=== PATIENT | male | born 1980 | race Caucasian/White ===

== ENCOUNTER 2017-09-20 00:04 | Emergency (ER) | payer MEDICARE, MEDICAID ==
[~2017-09-20 00:04] MED LIST: ALBU8.5H8 IH; CRUT1EAC36; FLUT16SP26 BOTHNARES; GUAI120015 PO; HYDR-569 PO; IBUP-1986 PO; NAPR-1154 PO; NO HOME MEDS
== END 2017-09-20 01:00 | disposition left against medical advice (07) ==
LOC: ER 00:05
DX: S00.83XA Contusion of other part of head, initial encounter (principal); G89.29 Other chronic pain; F12.10 Cannabis abuse, uncomplicated; F15.10 Other stimulant abuse, uncomplicated; Z79.899 Other long term (current) drug therapy; Z56.0 Unemployment, unspecified; Z59.0 Homelessness; Y09 Assault by unspecified means; Y93.89 Activity, other specified; Y92.89 Other specified places as the place of occurrence of the external cause; Y99.8 Other external cause status
CPT/HCPCS: 99281

== ENCOUNTER 2017-12-29 14:29 | Outpatient (CLI) | payer MEDICARE, MEDICAID ==
[2017-12-29 14:28] VITALS: BP 104/64
[~2017-12-29 14:29] MED LIST changes: +CEPH-571 PO; +HYDR-3965 PO
== END 2017-12-29 15:07 | disposition home or self-care (01) ==
LOC: ORTHO 14:29
PROVIDERS: ATTEND Nurse Practitioner Family
DX: S52.501A Unspecified fracture of the lower end of right radius, initial encounter for closed fracture (principal); F17.210 Nicotine dependence, cigarettes, uncomplicated; F12.90 Cannabis use, unspecified, uncomplicated; F15.90 Other stimulant use, unspecified, uncomplicated; Z56.0 Unemployment, unspecified; Z59.0 Homelessness; Z72.89 Other problems related to lifestyle; Z85.47 Personal history of malignant neoplasm of testis; Z90.79 Acquired absence of other genital organ(s); W01.0XXA Fall on same level from slipping, tripping and stumbling without subsequent striking against object, initial encounter; Y93.89 Activity, other specified; Y92.89 Other specified places as the place of occurrence of the external cause; Y99.8 Other external cause status
CPT/HCPCS: 73110; 99213

== ENCOUNTER 2018-01-11 09:58 | Outpatient (CLI) | payer MEDICARE, MEDICAID ==
[2018-01-11 09:57] VITALS: BP 119/74
== END 2018-01-11 10:14 | disposition home or self-care (01) ==
LOC: ORTHO 09:58
PROVIDERS: ATTEND Nurse Practitioner Family
DX: S52.591G Other fractures of lower end of right radius, subsequent encounter for closed fracture with delayed healing (principal); F17.210 Nicotine dependence, cigarettes, uncomplicated; F12.90 Cannabis use, unspecified, uncomplicated; F15.90 Other stimulant use, unspecified, uncomplicated; Z59.0 Homelessness; Z56.0 Unemployment, unspecified; Z72.89 Other problems related to lifestyle; W01.0XXD Fall on same level from slipping, tripping and stumbling without subsequent striking against object, subsequent encounter
CPT/HCPCS: 73110; 99213; A6449

== ENCOUNTER 2018-01-18 11:08 | Outpatient (CLI) | payer MEDICARE, MEDICAID ==
[2018-01-18 11:06] VITALS: BP 104/69
== END 2018-01-18 12:16 | disposition home or self-care (01) ==
LOC: ORTHO 11:08
PROVIDERS: ATTEND Nurse Practitioner Family
DX: S52.591G Other fractures of lower end of right radius, subsequent encounter for closed fracture with delayed healing (principal); F17.210 Nicotine dependence, cigarettes, uncomplicated; F12.90 Cannabis use, unspecified, uncomplicated; Z72.89 Other problems related to lifestyle; Z56.0 Unemployment, unspecified; Z59.0 Homelessness; Z85.47 Personal history of malignant neoplasm of testis; W01.0XXD Fall on same level from slipping, tripping and stumbling without subsequent striking against object, subsequent encounter
CPT/HCPCS: 73110; 99213; A4590

== ENCOUNTER 2018-02-01 12:59 | Outpatient (CLI) | payer MEDICARE, MEDICAID ==
[2018-02-01 12:46] VITALS: BP 112/71
[~2018-02-01 12:59] MED LIST changes: -HYDR-3965 PO
== END 2018-02-01 13:46 | disposition home or self-care (01) ==
LOC: ORTHO 12:59
PROVIDERS: ATTEND Nurse Practitioner Family
DX: S52.501G Unspecified fracture of the lower end of right radius, subsequent encounter for closed fracture with delayed healing (principal); F12.90 Cannabis use, unspecified, uncomplicated; F17.210 Nicotine dependence, cigarettes, uncomplicated; Z56.0 Unemployment, unspecified; Z59.0 Homelessness; Z72.89 Other problems related to lifestyle; Z85.47 Personal history of malignant neoplasm of testis; X58.XXXD Exposure to other specified factors, subsequent encounter
CPT/HCPCS: 73110; 99213; A4590

== ENCOUNTER 2018-03-01 09:37 | Outpatient (CLI) | payer OTHER, MEDICARE, MEDICAID ==
[2018-03-01 09:10] VITALS: BP 153/84
[~2018-03-01 09:37] MED LIST changes: +HYDR-4383 PO; -HYDR-569 PO
== END 2018-03-01 09:55 | disposition home or self-care (01) ==
LOC: ORTHO 09:37
PROVIDERS: ATTEND Nurse Practitioner Family
DX: S62.024G Nondisplaced fracture of middle third of navicular [scaphoid] bone of right wrist, subsequent encounter for fracture with delayed healing (principal); S52.591G Other fractures of lower end of right radius, subsequent encounter for closed fracture with delayed healing; F12.90 Cannabis use, unspecified, uncomplicated; F17.210 Nicotine dependence, cigarettes, uncomplicated; Z72.89 Other problems related to lifestyle; Z59.0 Homelessness; Z56.0 Unemployment, unspecified; W01.0XXD Fall on same level from slipping, tripping and stumbling without subsequent striking against object, subsequent encounter
CPT/HCPCS: 73110; 99213

== ENCOUNTER 2018-03-21 09:17 | Outpatient (CLI) | payer OTHER, MEDICARE, MEDICAID ==
[2018-03-21 09:08] VITALS: BP 122/78
== END 2018-03-21 09:45 | disposition home or self-care (01) ==
LOC: ORTHO 09:17
PROVIDERS: ATTEND Nurse Practitioner Family
DX: S52.591D Other fractures of lower end of right radius, subsequent encounter for closed fracture with routine healing (principal); S62.024D Nondisplaced fracture of middle third of navicular [scaphoid] bone of right wrist, subsequent encounter for fracture with routine healing; Z87.891 Personal history of nicotine dependence; Z59.0 Homelessness; Z56.0 Unemployment, unspecified; X58.XXXD Exposure to other specified factors, subsequent encounter
CPT/HCPCS: 73110; 99213

== ENCOUNTER 2018-04-12 11:12 | Outpatient (CLI) | payer MEDICARE, MEDICAID ==
[2018-04-12 11:33] VITALS: BP 102/69
== END 2018-04-12 11:59 | disposition home or self-care (01) ==
LOC: ORTHO 11:12
PROVIDERS: ATTEND Nurse Practitioner Family
DX: S52.591D Other fractures of lower end of right radius, subsequent encounter for closed fracture with routine healing (principal); S62.024G Nondisplaced fracture of middle third of navicular [scaphoid] bone of right wrist, subsequent encounter for fracture with delayed healing; F17.210 Nicotine dependence, cigarettes, uncomplicated; Z56.0 Unemployment, unspecified; Z59.0 Homelessness; Z72.89 Other problems related to lifestyle; W01.0XXD Fall on same level from slipping, tripping and stumbling without subsequent striking against object, subsequent encounter
CPT/HCPCS: 73110; 99213

== ENCOUNTER 2018-08-03 06:25 | Emergency (ER) | payer MEDICARE, MEDICAID ==
[~2018-08-03] VITALS: Ht 165.1 cm; Wt 68.7 kg
[2018-08-03 06:27] VITALS: BP 121/79
[2018-08-03] MEDS ORDERED: PRED20TA PO (07:07)
[2018-08-03] MEDS ORDERED: dexamethasone 4mg tablet PO ONE (07:10)
== END 2018-08-03 07:21 | disposition home or self-care (01) ==
LOC: ER 06:26
DX: L23.7 Allergic contact dermatitis due to plants, except food (principal); G89.29 Other chronic pain; F12.90 Cannabis use, unspecified, uncomplicated; Z59.0 Homelessness; Z56.0 Unemployment, unspecified; Z98.890 Other specified postprocedural states; Z86.14 Personal history of Methicillin resistant Staphylococcus aureus infection; Z79.899 Other long term (current) drug therapy
CPT/HCPCS: 99283; J8540

== ENCOUNTER 2018-08-31 14:39 | Outpatient (CLI) | payer MEDICARE, MEDICAID ==
[~2018-08-31 14:39] MED LIST changes: +PRED20TA PO
== END 2018-08-31 15:15 | disposition home or self-care (01) ==
LOC: ORTHO 14:39
PROVIDERS: ATTEND Orthopaedic Surgery
DX: S52.591D Other fractures of lower end of right radius, subsequent encounter for closed fracture with routine healing (principal); X58.XXXD Exposure to other specified factors, subsequent encounter
CPT/HCPCS: 73110; 99213

== ENCOUNTER 2018-10-27 06:11 | Emergency (ER) | payer MEDICARE, MEDICAID ==
[~2018-10-27] VITALS: Ht 165.1 cm; Wt 75.0 kg
[~2018-10-27 06:11] MED LIST changes: -PRED20TA PO
[2018-10-27] MEDS ORDERED: HYDROcodone/acetaminophen 5mg/325mg tablet PO ONE ×2 (06:45→07:20)
[2018-10-27] MEDS ORDERED: ondansetron 4mg rapidly disintigrating tab PO ONE ×2 (06:45→07:20)
[2018-10-27 06:57] LABS: CLARITY,URINE SLIGHTLY CLOUDY (Clear); GLUCOSE, URINE NEGATIVE (Neg); KETONES,URINE NEGATIVE (Neg); LEUKOCYTE ESTERASE ,URINE NEGATIVE (Neg); NITRITES, URINE NEGATIVE (Neg); OCCULT BLOOD,URINE NEGATIVE (Neg); PROTEIN,URINE 30 mg/dl (Neg); UROBILINOGEN,URINE 0.2 E.U/dL (0.2-1.0)
[2018-10-27 07:05] LABS: BASOPHILS % (AUTO) 0.3 % (0-1); EOSINOPHILS % (AUTO) 0.3 % (0-6); HEMATOCRIT 50.7 % (42.0-52.0); HEMOGLOBIN 17.8 g/dl (14.0-17.9); LYMPHOCYTES # (AUTO) 1.3 X10'3 (1.1-4.8); LYMPHOCYTES % (AUTO) 8.6 % (21-51); MEAN CORPUSCULAR HEMOGLOBIN 32.9 PG (27.0-31.0); MEAN CORPUSCULAR VOLUME 93.8 FL (78-98); MEAN PLATELET VOLUME 8.3 FL (7.4-10.4); MONOCYTES # (AUTO) 0.9 X10'3 (0-0.9); MONOCYTES % (AUTO) 6.1 % (2-12); NEUTROPHILS # (AUTO) 12.6 X10'3 (1.8-7.7); NEUTROPHILS % (AUTO) 84.7 % (42-75); PLATELET COUNT 280 X10'3 (140-440); RED BLOOD COUNT 5.41 X10'6 (4.70-6.10); RED CELL DISTRIBUTION WIDTH 12.7 % (11.5-14.5); WHITE BLOOD COUNT 14.9 X10'3 (4.5-11.0)
[2018-10-27] MEDS ORDERED: diphenhydrAMINE 25mg capsule PO ONE (07:05)
[2018-10-27] MEDS ORDERED: acetaminophen 325mg tablet PO ONE (07:05)
[2018-10-27] MEDS ORDERED: clindamycin 150mg capsule PO ONE (07:05)
[2018-10-27] MEDS ORDERED: TETanus/Pertussis (Acell)/Diphther VAC/PF (Tdap-Adult) 0.5ml syringe IM ONE (07:05)
[2018-10-27 07:07] LABS: UA COLLECTION TYPE NON-SPECIFIED
[2018-10-27 07:08] LABS: COLOR,URINE DARK YELLOW (Yellow)
[2018-10-27 07:11] LABS: WBC,URINE 0-4 /HPF (0-4)
[2018-10-27 07:12] LABS: RBC,URINE 0-2 /HPF (0-2)
[2018-10-27 07:13] LABS: AMORPHOUS URATES 1+; BACTERIA,URINE FEW /HPF (Neg); HYALINE CASTS 0-3 /LPF (NEGATIVE); MUCUS STRANDS MANY /LPF (Neg); SQUAMOUS EPITHELIAL CELL,UR FEW /LPF (FEW)
[2018-10-27 07:27] VITALS: BP 164/104
[2018-10-27 07:41] LABS: ALANINE AMINOTRANSFERASE 25 U/L (12-78); ALBUMIN 4.3 G/DL (3.4-5.0); ALBUMIN/GLOBULIN RATIO 1.3 (1.1-1.5); ALKALINE PHOSPHATASE 65 IU/L (46-116); ANION GAP 6 (8-16); ASPARTATE AMINO TRANSFERASE 20 U/L (10-37); BILIRUBIN,TOTAL 0.3 MG/DL (0.1-1.0); BLOOD UREA NITROGEN 21 MG/DL (7-18); BUN/CREATININE RATIO 19.4 (5.4-32.0); CALCIUM 8.7 MG/DL (8.5-10.1); CHLORIDE 107 MMOL/L (99-107); CREATININE 1.08 MG/DL (0.60-1.10); GLUCOSE 133 MG/DL (70-104); LIPASE 89 U/L (73-393); POTASSIUM 4.1 MMOL/L (3.5-5.1); SODIUM 139 MMOL/L (135-145); TOTAL CARBON DIOXIDE 26.2 MMOL/L (24-32); TOTAL PROTEIN 7.7 G/DL (6.4-8.2); eGFR 77 ML/MIN
[2018-10-27] MEDS ORDERED: ketorolac trometh. 30mg/ml inj. IV SCH (08:00)
[2018-10-27 08:27] LABS: URINE AMPHETAMINE SCREEN NEGATIVE (Neg); URINE BARBITUATE SCREEN NEGATIVE (Neg); URINE BENZODIAZEPINES SCREEN NEGATIVE (Neg); URINE CANNABINOID SCREEN POSITIVE (Neg); URINE COCAINE SCREEN NEGATIVE (Neg); URINE METHADONE SCREEN NEGATIVE (Neg); URINE OPIATE SCREEN NEGATIVE (Neg); URINE PHENCYCLIDINE SCREEN NEGATIVE (Neg)
[2018-10-27] MEDS ORDERED: HYDR-3965 PO (08:56)
[2018-10-27] MEDS ORDERED: BISA-155 PO (08:56)
[2018-10-27] MEDS ORDERED: ONDA8TAB6 PO (08:56)
== END 2018-10-27 09:00 | disposition home or self-care (01) ==
LOC: ER 06:12
DX: R10.30 Lower abdominal pain, unspecified (principal); R10.84 Generalized abdominal pain; G89.29 Other chronic pain; F17.200 Nicotine dependence, unspecified, uncomplicated; F12.90 Cannabis use, unspecified, uncomplicated; Z59.0 Homelessness; Z56.0 Unemployment, unspecified; Z98.890 Other specified postprocedural states; Z86.14 Personal history of Methicillin resistant Staphylococcus aureus infection; Z79.899 Other long term (current) drug therapy
CPT/HCPCS: 36415; 80053; 80305; 81001; 83690; 85025; 85610; 99283; Q0163

== ENCOUNTER 2020-04-06 09:24 | Emergency (ER) | payer MEDICARE, MEDICAID ==
[~2020-04-06] VITALS: Ht 167.6 cm; Wt 63.6 kg
[~2020-04-06 09:24] MED LIST changes: +BISA-155 PO; +ONDA8TAB6 PO
[2020-04-06 09:29] VITALS: BP 115/90
[2020-04-06] MEDS ORDERED: ketorolac tromethamine 15mg/ml inj. IM ONE (10:15)
[2020-04-06] MEDS ORDERED: IBUP-1985 PO (10:29)
== END 2020-04-06 10:54 | disposition home or self-care (01) ==
LOC: ER 09:24
DX: G89.29 Other chronic pain (principal); M25.551 Pain in right hip; Z98.890 Other specified postprocedural states; F10.99 Alcohol use, unspecified with unspecified alcohol-induced disorder; F12.90 Cannabis use, unspecified, uncomplicated; Z86.14 Personal history of Methicillin resistant Staphylococcus aureus infection; Z56.0 Unemployment, unspecified; Z59.0 Homelessness; Z79.899 Other long term (current) drug therapy; Z87.828 Personal history of other (healed) physical injury and trauma
CPT/HCPCS: 96372; 99283; J1885

== ENCOUNTER 2020-08-19 19:26 | Emergency (ER) | payer MEDICAID, MEDICARE ==
[~2020-08-19] VITALS: Ht 167.6 cm; Wt 63.6 kg
[~2020-08-19 19:26] MED LIST changes: +IBUP-1985 PO; +LIDOcaine 1% 30ml preserv. free vial ONE; +LIDOcaine 1% W/epiNEPHrine 1:100,000 20ml vial ONE
[2020-08-19 19:43] VITALS: BP 139/88
[2020-08-19] MEDS ORDERED: TETanus/Pertussis (Acell)/Diphther VAC/PF (Tdap-Adult) 0.5ml syringe IMVAC ONE (19:50)
[2020-08-19] MEDS ORDERED: bacitracin 15gm ointment TP ONE (19:50)
[2020-08-19] MEDS ORDERED: LIDOcaine 1% W/epiNEPHrine 1:200,000 10ml vial IJ ONE (19:50)
[2020-08-19] MEDS ORDERED: ceFAZolin 1000mg inj IV ONE (19:50)
[2020-08-19] MEDS ORDERED: fentaNYL/PF 50MCG/1 ML 2ML syringe IV ONE (19:50)
[2020-08-19] MEDS ORDERED: ondansetron/PF 4mg/2ml inj IV ONE (19:50)
[2020-08-19] MEDS ORDERED: cefazolin/dext.iso 2gm/100ml 100 ML IV ONE (19:55)
[2020-08-19] MEDS ORDERED: rabies immune globulin/PF 150 unit/ml inj IMVAC STA (20:48)
[2020-08-19] MEDS ORDERED: rabies vaccine (PCEC)/PF 2.5 unit kit IMVAC ONE (20:50)
[2020-08-19] MEDS ORDERED: LIDOcaine 1% w/epiNEPHrine 1:200,000 30ml vial SQ ONE (21:20)
[2020-08-19] MEDS ORDERED: LIDOcaine 1% W/epiNEPHrine 1:100,000 20ml vial IJ ONE (21:30)
--- NOTE | 2020-08-19 22:00 | NUR ---
Confirmed with Dr. Blanco that administered all of Rabies Immunoglobin.
[2020-08-19] MEDS ORDERED: ONDA4TAB6 PO (22:31)
[2020-08-19] MEDS ORDERED: HYDR-3964 PO (22:31)
[2020-08-19] MEDS ORDERED: AMOX-117 PO (22:31)
[2020-08-19] MEDS ORDERED: ondansetron 4mg rapidly disintigrating tab PO ONE (22:40)
[2020-08-19] MEDS ORDERED: HYDROcodone/acetaminophen 10/325mg tab PO ONE (22:40)
== END 2020-08-19 23:02 | disposition home or self-care (01) ==
LOC: ER 19:26
DX: S61.212A Laceration without foreign body of right middle finger without damage to nail, initial encounter (principal); G89.29 Other chronic pain; F12.90 Cannabis use, unspecified, uncomplicated; Z20.3 Contact with and (suspected) exposure to rabies; Z86.14 Personal history of Methicillin resistant Staphylococcus aureus infection; Z85.9 Personal history of malignant neoplasm, unspecified; Z98.890 Other specified postprocedural states; Z72.89 Other problems related to lifestyle; Z56.0 Unemployment, unspecified; Z59.0 Homelessness; Z79.2 Long term (current) use of antibiotics; Z79.899 Other long term (current) drug therapy; W54.0XXA Bitten by dog, initial encounter; Y93.89 Activity, other specified; Y92.89 Other specified places as the place of occurrence of the external cause; Y99.8 Other external cause status
CPT/HCPCS: 12004; 73130; 90375; 90471; 90472; 90675; 90715; 96365; 96372; 96375; 99284; J2001; J2405; J3010

== ENCOUNTER 2020-08-21 09:16 | Emergency (ER) | payer MEDICARE ==
[~2020-08-21] VITALS: Ht 167.6 cm; Wt 63.6 kg
[~2020-08-21 09:16] MED LIST changes: +AMOX-117 PO; +HYDR-3964 PO; -LIDOcaine 1% 30ml preserv. free vial ONE; -LIDOcaine 1% W/epiNEPHrine 1:100,000 20ml vial ONE; +ONDA4TAB6 PO
--- NOTE | 2020-08-21 11:07 | NUR ---
maxwell españa asked to document dressing application non adherent, gauze wrap and elizabeth wrap to right hand, sutures well approximated
[2020-08-21 11:09] VITALS: BP 111/71
== END 2020-08-21 11:10 | disposition home or self-care (01) ==
LOC: ER 09:16
DX: S61.411D Laceration without foreign body of right hand, subsequent encounter (principal); G89.29 Other chronic pain; F12.90 Cannabis use, unspecified, uncomplicated; Z86.14 Personal history of Methicillin resistant Staphylococcus aureus infection; Z85.9 Personal history of malignant neoplasm, unspecified; Z98.890 Other specified postprocedural states; Z72.89 Other problems related to lifestyle; Z59.0 Homelessness; Z56.0 Unemployment, unspecified; Z79.2 Long term (current) use of antibiotics; Z79.899 Other long term (current) drug therapy; W54.0XXD Bitten by dog, subsequent encounter
CPT/HCPCS: 99281

== ENCOUNTER 2020-08-22 08:12 | Emergency (ER) | payer MEDICARE ==
[~2020-08-22] VITALS: Ht 167.6 cm; Wt 63.6 kg
[2020-08-22 08:18] VITALS: BP 117/82
[2020-08-22] MEDS ORDERED: rabies vaccine (PCEC)/PF 2.5 unit kit IMVAC ONE (08:25)
[2020-08-22] MEDS ORDERED: probenecid 500mg tablet PO ONE (08:35)
[2020-08-22] MEDS ORDERED: ampicillin/sulbac 3gm/NS 100ml 100 ML IV SCH (08:49)
== END 2020-08-22 10:51 | disposition home or self-care (01) ==
LOC: ER 08:13
DX: S61.411D Laceration without foreign body of right hand, subsequent encounter (principal); G89.29 Other chronic pain; F12.90 Cannabis use, unspecified, uncomplicated; F17.210 Nicotine dependence, cigarettes, uncomplicated; Z23 Encounter for immunization; Z20.3 Contact with and (suspected) exposure to rabies; Z86.14 Personal history of Methicillin resistant Staphylococcus aureus infection; Z85.9 Personal history of malignant neoplasm, unspecified; Z98.890 Other specified postprocedural states; Z72.89 Other problems related to lifestyle; Z59.0 Homelessness; Z56.0 Unemployment, unspecified; Z79.2 Long term (current) use of antibiotics; Z79.899 Other long term (current) drug therapy; X58.XXXD Exposure to other specified factors, subsequent encounter
CPT/HCPCS: 90471; 90675; 96365; 99284; J0295

== ENCOUNTER 2020-08-26 07:09 | Emergency (ER) | payer MEDICARE ==
[~2020-08-26] VITALS: Ht 167.6 cm; Wt 70.0 kg
[2020-08-26 07:11] VITALS: BP 124/89
[2020-08-26] MEDS ORDERED: rabies vaccine (PCEC)/PF 2.5 unit kit IMVAC ONE (08:15)
== END 2020-08-26 08:37 | disposition home or self-care (01) ==
LOC: ER 07:10
DX: Z23 Encounter for immunization (principal); Z48.01 Encounter for change or removal of surgical wound dressing; G89.29 Other chronic pain; Z86.14 Personal history of Methicillin resistant Staphylococcus aureus infection; F12.90 Cannabis use, unspecified, uncomplicated; Z72.89 Other problems related to lifestyle; Z59.0 Homelessness; Z56.0 Unemployment, unspecified; Z79.899 Other long term (current) drug therapy
CPT/HCPCS: 90471; 90675; 99282

== ENCOUNTER 2020-09-02 07:11 | Emergency (ER) | payer MEDICARE ==
[~2020-09-02] VITALS: Ht 167.6 cm; Wt 67.2 kg
[~2020-09-02 07:11] MED LIST changes: -AMOX-117 PO
[2020-09-02 07:15] VITALS: BP 129/88
--- NOTE | 2020-09-02 07:31 | NUR ---
PATIENT IS HERE TO HAVE SUTURES REMOVED FROM HAND THAT WERE PLACED ON 08/20/2020. WOUNDS APPEAR TO BE HEALING WELL AT THIS TIME.
[2020-09-02] MEDS ORDERED: rabies vaccine (PCEC)/PF 2.5 unit kit IMVAC ONE (08:15)
--- NOTE | 2020-09-02 11:21 | NUR ---
pt. received his 4th vaccine for rabies. pt. was told to come back for his 5th vaccine. after looking at this particular medication he only needed 4 doses. i called pt. and left a message for him not to return that his vaccine was completed and he could call me in the ER IF HE HAD ANY QUESTIONS
== END 2020-09-02 08:39 | disposition home or self-care (01) ==
LOC: ER 07:12
DX: S61.411D Laceration without foreign body of right hand, subsequent encounter (principal); F12.90 Cannabis use, unspecified, uncomplicated; G89.29 Other chronic pain; Z23 Encounter for immunization; Z20.3 Contact with and (suspected) exposure to rabies; Z48.02 Encounter for removal of sutures; Z86.14 Personal history of Methicillin resistant Staphylococcus aureus infection; Z85.9 Personal history of malignant neoplasm, unspecified; Z98.890 Other specified postprocedural states; Z72.89 Other problems related to lifestyle; Z59.0 Homelessness; Z56.0 Unemployment, unspecified; Z79.2 Long term (current) use of antibiotics; Z79.899 Other long term (current) drug therapy; X58.XXXD Exposure to other specified factors, subsequent encounter
CPT/HCPCS: 90471; 90675; 99281; 99283

== ENCOUNTER 2020-09-06 12:22 | Emergency (ER) | payer MEDICARE ==
[~2020-09-06] VITALS: Ht 165.1 cm; Wt 65.9 kg
[2020-09-06 12:44] VITALS: BP 120/79
[2020-09-06] MEDS ORDERED: HYDR-3965 PO (15:04)
== END 2020-09-06 15:12 | disposition home or self-care (01) ==
LOC: ER 12:23
DX: S62.511A Displaced fracture of proximal phalanx of right thumb, initial encounter for closed fracture (principal); G89.29 Other chronic pain; F12.90 Cannabis use, unspecified, uncomplicated; Z86.14 Personal history of Methicillin resistant Staphylococcus aureus infection; Z59.0 Homelessness; Z56.0 Unemployment, unspecified; Z72.89 Other problems related to lifestyle; Z79.899 Other long term (current) drug therapy; X50.1XXA Overexertion from prolonged static or awkward postures, initial encounter; Y93.89 Activity, other specified; Y92.89 Other specified places as the place of occurrence of the external cause; Y99.8 Other external cause status
CPT/HCPCS: 29125; 73130; 99283

== ENCOUNTER 2020-10-20 19:31 | Emergency (ER) | payer SELFPAY ==
[~2020-10-20] VITALS: Ht 165.1 cm; Wt 65.9 kg
[~2020-10-20 19:31] MED LIST changes: -HYDR-3964 PO
--- NOTE | 2020-10-20 19:33 | NUR ---
CN:[id number]
[2020-10-20] MEDS ORDERED: LIDOcaine 1% W/epiNEPHrine 1:200,000 10ml vial IJ ONE (20:30)
[2020-10-20 21:21] VITALS: BP 118/84
== END 2020-10-20 21:22 | disposition home or self-care (01) ==
LOC: ER 19:31 → EEVIPCON 19:31 → ER 21:22
DX: S01.81XA Laceration without foreign body of other part of head, initial encounter (principal); S01.01XA Laceration without foreign body of scalp, initial encounter; G89.29 Other chronic pain; F12.90 Cannabis use, unspecified, uncomplicated; Z86.14 Personal history of Methicillin resistant Staphylococcus aureus infection; Z85.9 Personal history of malignant neoplasm, unspecified; Z72.89 Other problems related to lifestyle; Z98.890 Other specified postprocedural states; Z56.0 Unemployment, unspecified; Z59.0 Homelessness; X58.XXXA Exposure to other specified factors, initial encounter; Y93.89 Activity, other specified; Y92.89 Other specified places as the place of occurrence of the external cause; Y99.8 Other external cause status
CPT/HCPCS: 12002; 70450; 72125; 99285

== ENCOUNTER 2020-11-06 22:22 | Emergency (ER) | payer MEDICARE, MEDICAID ==
[~2020-11-06] VITALS: Ht 162.6 cm; Wt 62.8 kg
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
[2020-11-07] MEDS ORDERED: CEPH250T PO (00:17)
[2020-11-07] MEDS ORDERED: HYDROcodone/acetaminophen 5mg/325mg tablet PO ONE (00:20)
[2020-11-07] MEDS ORDERED: TETanus/Pertussis (Acell)/Diphther VAC/PF (Tdap-Adult) 0.5ml syringe IMVAC ONE (00:20)
[2020-11-07 00:28] VITALS: BP 122/70
== END 2020-11-07 00:30 | disposition home or self-care (01) ==
LOC: ER 22:23
DX: S01.511A Laceration without foreign body of lip, initial encounter (principal); S01.112A Laceration without foreign body of left eyelid and periocular area, initial encounter; G89.29 Other chronic pain; F17.200 Nicotine dependence, unspecified, uncomplicated; F12.90 Cannabis use, unspecified, uncomplicated; Z86.14 Personal history of Methicillin resistant Staphylococcus aureus infection; Z85.9 Personal history of malignant neoplasm, unspecified; Z98.890 Other specified postprocedural states; Z72.89 Other problems related to lifestyle; Z56.0 Unemployment, unspecified; Z59.0 Homelessness; Z79.2 Long term (current) use of antibiotics; Y08.89XA Assault by other specified means, initial encounter; Y93.89 Activity, other specified; Y92.89 Other specified places as the place of occurrence of the external cause; Y99.8 Other external cause status
CPT/HCPCS: 12053; 99283; 99285

== ENCOUNTER 2020-11-16 09:10 | Emergency (ER) | payer MEDICAID, MEDICARE ==
[~2020-11-16] VITALS: Ht 162.6 cm; Wt 60.3 kg
[2020-11-16 09:31] VITALS: BP 114/77
== END 2020-11-16 10:12 | disposition home or self-care (01) ==
LOC: ER 09:11
DX: S01.511D Laceration without foreign body of lip, subsequent encounter (principal); Z48.02 Encounter for removal of sutures; Z79.2 Long term (current) use of antibiotics; G89.29 Other chronic pain; Z56.0 Unemployment, unspecified; Z59.0 Homelessness; Z85.9 Personal history of malignant neoplasm, unspecified; Z86.14 Personal history of Methicillin resistant Staphylococcus aureus infection; X58.XXXD Exposure to other specified factors, subsequent encounter
CPT/HCPCS: 99281

== ENCOUNTER 2021-01-31 21:57 | Emergency (ER) | payer MEDICARE, MEDICAID ==
[~2021-01-31] VITALS: Ht 162.6 cm; Wt 63.6 kg
[2021-01-31] MEDS ORDERED: LIDOcaine 1% W/epiNEPHrine 1:200,000 10ml vial IJ ONE (22:40)
[2021-01-31] MEDS ORDERED: LIDOcaine 1% W/epiNEPHrine 1:100,000 20ml vial IJ ONE (22:45)
--- NOTE | 2021-02-01 06:02 | NUR ---
KHADAR CASE # [id number]. DISPATCH AWARE THAT PT IS DISCHARGED TO LOBBY AND WILL WAIT THERE UNTIL OFFICER ARRIVES
[2021-02-01 06:03] VITALS: BP 126/81
== END 2021-02-01 06:04 | disposition home or self-care (01) ==
LOC: ER 21:58
DX: S06.0X0A Concussion without loss of consciousness, initial encounter (principal); S01.01XA Laceration without foreign body of scalp, initial encounter; G89.29 Other chronic pain; F12.90 Cannabis use, unspecified, uncomplicated; Z72.89 Other problems related to lifestyle; Z86.14 Personal history of Methicillin resistant Staphylococcus aureus infection; Z85.9 Personal history of malignant neoplasm, unspecified; Z56.0 Unemployment, unspecified; Z59.0 Homelessness; W26.8XXA Contact with other sharp object(s), not elsewhere classified, initial encounter; Y93.89 Activity, other specified; Y92.89 Other specified places as the place of occurrence of the external cause; Y99.8 Other external cause status
CPT/HCPCS: 12001; 99283

== ENCOUNTER 2021-02-13 17:48 | Emergency (ER) | payer MEDICARE, MEDICAID ==
[~2021-02-13] VITALS: Ht 162.6 cm; Wt 59.5 kg
[2021-02-13 21:42] LABS: BASOPHILS % (AUTO) 0.3 % (0-1); EOSINOPHILS # (AUTO) 0.1 X10'3 (0-0.9); EOSINOPHILS % (AUTO) 1.3 % (0-6); HEMATOCRIT 41.1 % (42.0-52.0); HEMOGLOBIN 14.5 g/dl (14.0-17.9); LYMPHOCYTES # (AUTO) 2.2 X10'3 (1.1-4.8); LYMPHOCYTES % (AUTO) 23.9 % (21-51); MEAN CORPUSCULAR HEMOGLOBIN 32.7 PG (27.0-31.0); MEAN CORPUSCULAR HGB CONC 35.3 g/dL (33.0-36.5); MEAN CORPUSCULAR VOLUME 92.7 FL (78-98); MEAN PLATELET VOLUME 7.7 FL (7.4-10.4); MONOCYTES % (AUTO) 10.4 % (2-12); NEUTROPHILS # (AUTO) 5.9 X10'3 (1.8-7.7); NEUTROPHILS % (AUTO) 64.1 % (42-75); PLATELET COUNT 299 X10'3 (140-440); RED BLOOD COUNT 4.44 X10'6 (4.70-6.10); RED CELL DISTRIBUTION WIDTH 12.4 % (11.5-14.5); WHITE BLOOD COUNT 9.2 X10'3 (4.5-11.0)
[2021-02-13 21:51] LABS: ALANINE AMINOTRANSFERASE 26 U/L (12-78); ALBUMIN 3.4 G/DL (3.4-5.0); ALBUMIN/GLOBULIN RATIO 1.1 (1.1-1.5); ALKALINE PHOSPHATASE 101 IU/L (46-116); ANION GAP 7 (8-16); ASPARTATE AMINO TRANSFERASE 15 U/L (10-37); BILIRUBIN,TOTAL 0.5 MG/DL (0.1-1.0); BLOOD UREA NITROGEN 10 MG/DL (7-18); BUN/CREATININE RATIO 12.5 (5.4-32.0); CALCIUM 8.2 MG/DL (8.5-10.1); CHLORIDE 105 MMOL/L (99-107); GLUCOSE 117 MG/DL (70-104); POTASSIUM 3.2 MMOL/L (3.5-5.1); SODIUM 144 MMOL/L (135-145); TOTAL CARBON DIOXIDE 31.8 MMOL/L (24-32); TOTAL PROTEIN 6.4 G/DL (6.4-8.2); eGFR > 90 ML/MIN
[2021-02-13 21:56] LABS: ETHANOL < 0.010 GM/DL (0.0-0.010)
[2021-02-13 22:38] LABS: URINE AMPHETAMINE SCREEN POSITIVE (Neg); URINE BARBITUATE SCREEN NEGATIVE (Neg); URINE BENZODIAZEPINES SCREEN NEGATIVE (Neg); URINE CANNABINOID SCREEN POSITIVE (Neg); URINE COCAINE SCREEN NEGATIVE (Neg); URINE METHADONE SCREEN NEGATIVE (Neg); URINE OPIATE SCREEN NEGATIVE (Neg); URINE PHENCYCLIDINE SCREEN NEGATIVE (Neg)
[2021-02-14 02:03] VITALS: BP 124/90
== END 2021-02-14 02:05 | disposition home or self-care (01) ==
LOC: ER 17:48
DX: M54.9 Dorsalgia, unspecified (principal); R51.9 Headache, unspecified; R68.84 Jaw pain; Y09 Assault by unspecified means; S00.83XA Contusion of other part of head, initial encounter
CPT/HCPCS: 36415; 70450; 70486; 72125; 80053; 80305; 80320; 85025; 99285

== ENCOUNTER 2021-02-18 11:33 | Emergency (ER) | payer MEDICARE, MEDICAID ==
[~2021-02-18] VITALS: Ht 167.6 cm; Wt 61.6 kg
[2021-02-18] MEDS ORDERED: IBUP-1984 PO (13:18)
[2021-02-18] MEDS ORDERED: ketorolac tromethamine 15mg/ml inj. IM ONE (13:20)
== END 2021-02-18 13:44 | disposition home or self-care (01) ==
LOC: ER 11:34
DX: S01.01XD Laceration without foreign body of scalp, subsequent encounter (principal); R68.84 Jaw pain; G89.29 Other chronic pain; F12.90 Cannabis use, unspecified, uncomplicated; Z48.02 Encounter for removal of sutures; Z86.14 Personal history of Methicillin resistant Staphylococcus aureus infection; Z85.9 Personal history of malignant neoplasm, unspecified; Z98.890 Other specified postprocedural states; Z72.89 Other problems related to lifestyle; Z56.0 Unemployment, unspecified; Z59.00 Homelessness unspecified; Z79.899 Other long term (current) drug therapy; Y08.89XD Assault by other specified means, subsequent encounter
CPT/HCPCS: 96372; 99283; J1885

== ENCOUNTER 2021-09-08 13:36 | Emergency (ER) | payer MEDICARE, MEDICAID ==
[~2021-09-08] VITALS: Ht 167.6 cm; Wt 145.0 kg
[2021-09-08 14:13] VITALS: BP 136/82
[2021-09-08] MEDS ORDERED: acetaminophen 325mg tablet PO ONE (15:15)
== END 2021-09-08 15:28 | disposition home or self-care (01) ==
LOC: ER 13:37
DX: S53.402A Unspecified sprain of left elbow, initial encounter (principal); F10.129 Alcohol abuse with intoxication, unspecified; M25.522 Pain in left elbow; G89.29 Other chronic pain; F12.90 Cannabis use, unspecified, uncomplicated; Z86.14 Personal history of Methicillin resistant Staphylococcus aureus infection; Z98.890 Other specified postprocedural states; Z85.9 Personal history of malignant neoplasm, unspecified; Z72.89 Other problems related to lifestyle; Z59.00 Homelessness unspecified; Z56.0 Unemployment, unspecified; X58.XXXA Exposure to other specified factors, initial encounter; Y93.89 Activity, other specified; Y92.89 Other specified places as the place of occurrence of the external cause; Y99.8 Other external cause status; Y90.9 Presence of alcohol in blood, level not specified
CPT/HCPCS: 73080; 99283

== ENCOUNTER 2021-09-12 07:23 | Emergency (ER) | payer MEDICARE, MEDICAID ==
[~2021-09-12] VITALS: Ht 167.6 cm; Wt 63.0 kg
[2021-09-12 09:00] LABS: BASOPHILS % (AUTO) 0.4 % (0-1); EOSINOPHILS # (AUTO) 0.2 X10'3 (0-0.9); EOSINOPHILS % (AUTO) 2.2 % (0-6); HEMATOCRIT 47.2 % (42.0-52.0); HEMOGLOBIN 16.5 g/dl (14.0-17.9); LYMPHOCYTES # (AUTO) 1.8 X10'3 (1.1-4.8); LYMPHOCYTES % (AUTO) 22.5 % (21-51); MEAN CORPUSCULAR HEMOGLOBIN 32.1 PG (27.0-31.0); MEAN CORPUSCULAR HGB CONC 34.9 g/dL (33.0-36.5); MEAN CORPUSCULAR VOLUME 92.2 FL (78-98); MEAN PLATELET VOLUME 7.8 FL (7.4-10.4); MONOCYTES # (AUTO) 0.6 X10'3 (0-0.9); MONOCYTES % (AUTO) 7.9 % (2-12); NEUTROPHILS # (AUTO) 5.4 X10'3 (1.8-7.7); PLATELET COUNT 339 X10'3 (140-440); RED BLOOD COUNT 5.13 X10'6 (4.70-6.10); RED CELL DISTRIBUTION WIDTH 12.9 % (11.5-14.5); WHITE BLOOD COUNT 8.1 X10'3 (4.5-11.0)
[2021-09-12 09:12] LABS: APTT 29 SECONDS (22-32)
[2021-09-12 09:14] LABS: ALANINE AMINOTRANSFERASE 36 U/L (12-78); ALBUMIN 3.7 G/DL (3.4-5.0); ALKALINE PHOSPHATASE 67 IU/L (46-116); ANION GAP 8 (8-16); ASPARTATE AMINO TRANSFERASE 35 U/L (10-37); BILIRUBIN,TOTAL 0.4 MG/DL (0.1-1.0); BLOOD UREA NITROGEN 12 MG/DL (7-18); BUN/CREATININE RATIO 15.2 (5.4-32.0); CALCIUM 8.9 MG/DL (8.5-10.1); CHLORIDE 102 MMOL/L (99-107); CREATININE 0.79 MG/DL (0.60-1.10); GLUCOSE 79 MG/DL (70-104); POTASSIUM 3.8 MMOL/L (3.5-5.1); SODIUM 142 MMOL/L (135-145); TOTAL CARBON DIOXIDE 32.2 MMOL/L (24-32); TOTAL PROTEIN 7.4 G/DL (6.4-8.2); eGFR > 90 ML/MIN
[2021-09-12] MEDS ORDERED: iohexol 350MG/ML 100ml bottle IV ONE (09:19)
--- NOTE | 2021-09-12 09:27 | NUR ---
TO CT SCAN.
[2021-09-12] MEDS ORDERED: CEPH-585 PO ×2 (11:21→11:27)
[2021-09-12 11:41] VITALS: BP 135/90
== END 2021-09-12 11:43 | disposition home or self-care (01) ==
LOC: ER 07:24
DX: S40.022A Contusion of left upper arm, initial encounter (principal); S53.402D Unspecified sprain of left elbow, subsequent encounter; G89.29 Other chronic pain; F12.90 Cannabis use, unspecified, uncomplicated; Z56.0 Unemployment, unspecified; Z59.00 Homelessness unspecified; Z72.89 Other problems related to lifestyle; Z86.14 Personal history of Methicillin resistant Staphylococcus aureus infection; Z85.9 Personal history of malignant neoplasm, unspecified; Y08.89XA Assault by other specified means, initial encounter; Y93.89 Activity, other specified; Y92.89 Other specified places as the place of occurrence of the external cause; Y99.8 Other external cause status
CPT/HCPCS: 36415; 73206; 80053; 85025; 85610; 85730; 86885; 86900; 86901; 99285; Q9967

== ENCOUNTER 2021-09-17 08:17 | Emergency (ER) | payer MEDICARE, MEDICAID ==
[~2021-09-17] VITALS: Ht 167.6 cm; Wt 65.9 kg
[~2021-09-17 08:17] MED LIST changes: -ALBU8.5H8 IH; -BISA-155 PO; -CEPH-571 PO; +CEPH-585 PO; -CRUT1EAC36; -FLUT16SP26 BOTHNARES; -GUAI120015 PO; -HYDR-4383 PO; -IBUP-1985 PO; -IBUP-1986 PO; -NAPR-1154 PO; -NO HOME MEDS; -ONDA4TAB6 PO; -ONDA8TAB6 PO
[2021-09-17 08:26] VITALS: BP 112/79
[2021-09-17] MEDS ORDERED: buprenorphine/naloxone 8MG-2MG SUBlingual film SL SCH (09:20)
[2021-09-17] MEDS ORDERED: CEPH500C2 PO (10:00)
== END 2021-09-17 10:16 | disposition home or self-care (01) ==
LOC: ER 08:17
DX: G89.29 Other chronic pain (principal); M25.522 Pain in left elbow; Z76.0 Encounter for issue of repeat prescription; Z86.14 Personal history of Methicillin resistant Staphylococcus aureus infection; Z59.00 Homelessness unspecified
CPT/HCPCS: 99281

== ENCOUNTER 2022-01-08 17:26 | Emergency (ER) | payer MEDICARE, MEDICAID ==
[~2022-01-08] VITALS: Ht 165.1 cm; Wt 68.2 kg
[2022-01-08 17:48] VITALS: BP 121/83
--- NOTE | 2022-01-08 17:58 | NUR ---
CALLED [facility] AT [phone] TO FILE REPORT AND SPOKE TO MARLENE , PER HER THE OFFICER WILL CONTACT THE ER TRAV.
--- NOTE | 2022-01-08 18:15 | NUR ---
RECIEVED CALL FROM MARLENE FROM [facility] AND CASE NO PROVIDED [id number].
[2022-01-08] MEDS ORDERED: LIDOcaine 5% patch TP ONE (18:30)
[2022-01-08] MEDS ORDERED: bacitracin 15gm ointment TP ONE (18:30)
[2022-01-08] MEDS ORDERED: acetaminophen 325mg tablet PO ONE (18:30)
[2022-01-08] MEDS ORDERED: ibuprofen tablet 400 MG TABLET PO ONE (18:30)
[2022-01-08] MEDS ORDERED: MELO-100 PO (20:07)
[2022-01-08] MEDS ORDERED: ACET-1025 PO (20:07)
[2022-01-08] MEDS ORDERED: LIDO700A32 TOP (20:07)
== END 2022-01-08 20:21 | disposition home or self-care (01) ==
LOC: ER 17:26
DX: Z04.71 Encounter for examination and observation following alleged adult physical abuse (principal); F12.90 Cannabis use, unspecified, uncomplicated; Z56.0 Unemployment, unspecified; Z59.00 Homelessness unspecified; Y08.89XA Assault by other specified means, initial encounter; Y93.89 Activity, other specified; Y92.89 Other specified places as the place of occurrence of the external cause; Y99.8 Other external cause status; R51.9 Headache, unspecified; S09.90XA Unspecified injury of head, initial encounter; S19.9XXA Unspecified injury of neck, initial encounter
CPT/HCPCS: 70450; 71045; 72125; 99284

== ENCOUNTER 2024-05-30 10:18 | Emergency (ER) | payer MEDICARE, MEDICAID ==
[~2024-05-30] VITALS: Ht 167.6 cm; Wt 76.0 kg
[~2024-05-30 10:18] MED LIST changes: +LIDO700A32 TOP; +MELO-100 PO
[2024-05-30 10:32] VITALS: BP 113/86; PULSE 83; RESP 16; TEMP 97.3; O2SAT 97
== END 2024-05-30 11:57 | disposition home or self-care (01) ==
LOC: ER 10:18
DX: J06.9 Acute upper respiratory infection, unspecified (principal); F12.90 Cannabis use, unspecified, uncomplicated; F17.210 Nicotine dependence, cigarettes, uncomplicated; Z79.899 Other long term (current) drug therapy; Z79.2 Long term (current) use of antibiotics; Z59.00 Homelessness unspecified
CPT/HCPCS: 99282